=== PATIENT | female | born 1960 | race Caucasian/White ===

== ENCOUNTER → 2016-08-20 | Outpatient (CLI) | payer BC | LOC: MAMO 15:40 | DX: Z12.31 Encounter for screening mammogram for malignant neoplasm of breast (principal); Z90.710 Acquired absence of both cervix and uterus | CPT/HCPCS: G0202 ==

== ENCOUNTER → 2020-08-05 | Outpatient (CLI) | payer BC, OTHER | LOC: KOH-I 14:45 | DX: M54.2 Cervicalgia (principal); M54.9 Dorsalgia, unspecified; M54.5 Low back pain; M48.02 Spinal stenosis, cervical region; M48.04 Spinal stenosis, thoracic region; M51.36 Other intervertebral disc degeneration, lumbar region; M48.061 Spinal stenosis, lumbar region without neurogenic claudication | CPT/HCPCS: 72040; 72070; 72100 ==

== ENCOUNTER → 2021-03-17 | Day surgery (SDC) | payer BC ==
[~2021-03-17] MED LIST: ALLEGRA ALLERG180 MG PO; COZAAR100 MG PO; CYCLOBENZAPRINE5 MG PO; EUTHYROX75 MCG PO; HYDROCHLOROTH12.5 MG PO; HYDROCODON-ACE1 EAC4 PO; METOPROLOL SUCC50 MG PO; ORENCIA 250 MG250 MG IV; POTASSIUM CHLO10 ME2 PO; SINGULAIR10 MG PO; ULTRAM50 MG PO; VITAMIN D31250 MCG PO; XANAX0.5 MG PO; ZYCLARA1 EACH TOP
[2021-03-17 12:44] LABS: HEMOGLOBIN 13.8 gm/dl (12.3-15.3); RED BLOOD COUNT 5.49 M/UL (4.00-5.10); WHITE BLOOD COUNT 8.2 K/UL (4.5-11.0)
== END | disposition home or self-care (01) ==
LOC: OR 09:30
PROVIDERS: Obstetrics & Gynecology
DX: A63.0 Anogenital (venereal) warts (principal); M06.9 Rheumatoid arthritis, unspecified; K21.9 Gastro-esophageal reflux disease without esophagitis; I10 Essential (primary) hypertension; F41.0 Panic disorder [episodic paroxysmal anxiety]; E78.5 Hyperlipidemia, unspecified; E03.9 Hypothyroidism, unspecified; E66.01 Morbid (severe) obesity due to excess calories; Z68.41 Body mass index [BMI] 40.0-44.9, adult; Z88.8 Allergy status to other drugs, medicaments and biological substances; Z79.899 Other long term (current) drug therapy; Z20.822 Contact with and (suspected) exposure to COVID-19
CPT/HCPCS: 36415; 71045; 85025; 93005; J1100; J1885; J2001; J2405; J2704; J2710; J3010; J7120; U0002

== ENCOUNTER → 2021-04-15 | Outpatient (CLI) | payer BC | LOC: RAD 17:43 | DX: R05.9 Cough, unspecified (principal) | CPT/HCPCS: 71046 ==

== ENCOUNTER → 2021-05-04 | Outpatient (CLI) | payer BC | LOC: MAMO 03-27 11:30 | DX: Z12.31 Encounter for screening mammogram for malignant neoplasm of breast (principal) | CPT/HCPCS: 77063; 77067 ==

== ENCOUNTER → 2021-08-03 | Outpatient (CLI) | payer BC | LOC: HEART 5 14:46 | DX: R06.02 Shortness of breath (principal) | CPT/HCPCS: 94010; 94729 ==

== ENCOUNTER → 2021-08-24 | Outpatient (CLI) | payer BC | LOC: HEART 5 08-20 13:00 | DX: R06.02 Shortness of breath (principal); I08.8 Other rheumatic multiple valve diseases | CPT/HCPCS: 93306 ==

== ENCOUNTER → 2021-10-01 | Outpatient (CLI) | payer BC | LOC: HEART 5 09-15 07:45 | DX: R06.02 Shortness of breath (principal) | CPT/HCPCS: 78452; A9502; J2785 ==